=== PATIENT | female | born 1945 ===

== ENCOUNTER 2025-09-29 17:45 | Emergency (ER) | payer MEDICARE, BC ==
[2025-09-29] MEDS: Take Home: traMADol 50 MG, 4 Tab Pack PO ONE (18:22)
[2025-09-29] MEDS: Take Home: Cyclobenzaprine 10 MG Tab, 4 Tab Pack PO ONE (18:22)
== END 2025-09-29 18:46 | disposition home or self-care (01) ==
LOC: CC.ED 17:45
DX: M43.6 Torticollis (principal); Z88.2 Allergy status to sulfonamides; Z79.84 Long term (current) use of oral hypoglycemic drugs; Z79.890 Hormone replacement therapy; Z79.899 Other long term (current) drug therapy
CPT/HCPCS: 99283; 99284; A9270-GY